=== PATIENT | male | born 1985 | race Hispanic/Latino ===

== ENCOUNTER 2019-06-08 16:39 | Emergency (ER) | payer SELFPAY ==
[2019-06-08] MEDS ORDERED: KEFLEX500 M1 PO (17:32)
[2019-06-08] MEDS ORDERED: BACTROBAN TOP (17:32)
[2019-06-08] MEDS ORDERED: ELIMITE52 TOP (17:32)
[2019-06-08 17:40] VITALS: BP 112/76
== END 2019-06-08 17:40 | disposition home or self-care (01) | DRG 607 ==
LOC: ED 16:39
DX: B86 Scabies (principal); L01.00 Impetigo, unspecified; F17.200 Nicotine dependence, unspecified, uncomplicated